=== PATIENT | female | born 1960 | race Caucasian/White ===

== ENCOUNTER 2017-04-08 20:52 | Observation (INO) | payer OTHER ==
[~2017-04-08] VITALS: Ht 160 cm; Wt 88.2 kg
[~2017-04-08 20:52] MED LIST: ALPR0.25 PO; FURO-92 PO; LEVO112T2 PO; LEVO125T5 PO; LOSA25TA5 PO; METO25TA35 PO; POTA10TA PO
[2017-04-08] MEDS ORDERED: LOSA1TAB16 PO (21:55)
[2017-04-08] MEDS ORDERED: SODIUM CHLORIDE FLUSH 10ML SYR IVF ONE (22:00)
[2017-04-08] MEDS ORDERED: ACETAMINOPHEN 325 MG TABLET PO ONE (22:00)
[2017-04-08] MEDS ORDERED: ASPIRIN 81 MG TABLET CHEW PO ONE (22:00)
[2017-04-08] MEDS ORDERED: NITROGLYCERIN SINGLE TAB 0.4 MG SL ONE ×2 (22:00→22:19)
[2017-04-08] MEDS ORDERED: LORazepam 2 MG/ML, 1ML IVPush ONE (22:00)
[2017-04-08] MEDS ORDERED: ACETAMINOPHEN 325 MG TABLET ONE (22:18)
[2017-04-08] MEDS ORDERED: LORazepam 2 MG/ML, 1ML ONE (22:19)
[2017-04-08] MEDS ORDERED: ASPIRIN 81 MG TABLET CHEW ONE (22:19)
[2017-04-08 22:27] LABS: HEMATOCRIT 40.5 % (34.6-47.8); HEMOGLOBIN 13.7 g/dL (11.7-16.4); WHITE BLOOD COUNT 8.9 x10^3/uL (3.4-10)
[2017-04-08 22:39] LABS: BLOOD UREA NITROGEN 27 mg/dL (7-18)
[2017-04-08 22:42] LABS: ASPARTATE AMINO TRANSFERASE 9 U/L (15-37)
[2017-04-08 22:53] LABS: IS PT STATUS REG ER OR PRE ER? YES
[2017-04-09] MEDS ORDERED: ENALAPRILAT 1.25 MG/ML, 2ML IVPush PRN
[2017-04-09] MEDS ORDERED: TEMAZEPAM 15 MG CAPSULE PO PRN
[2017-04-09 00:22] VITALS: BP 124/83
[2017-04-09] MEDS ORDERED: XANAX MC SCH (00:30)
[2017-04-09 00:45] VITALS: BP 124/83
[2017-04-09] MEDS: SODIUM CHLORIDE 0.9% 1,000 ML IV SCH ×2 (00:46→15:00)
[2017-04-09 05:24] LABS: HEMOGLOBIN 12.6 g/dL (11.7-16.4); WHITE BLOOD COUNT 7.4 x10^3/uL (3.4-10)
[2017-04-09 05:55] LABS: IS PT STATUS REG ER OR PRE ER? NO
[2017-04-09 05:56] LABS: BLOOD UREA NITROGEN 25 mg/dL (7-18)
[2017-04-09] MEDS ORDERED: LEVOTHYROXINE 112 MCG TABLET PO SCH (06:00)
[2017-04-09 07:21] VITALS: BP 109/76
[2017-04-09] MEDS: HEPARIN 5,000 UNITS/ML, 1ML SQ SCH ×3 (08:00→15:43)
[2017-04-09] MEDS ORDERED: REGADENOSON 0.4 MG/5 ML SYRINGE ONE (08:48)
[2017-04-09] MEDS ORDERED: HYDROCHLOROTHIAZIDE 12.5 MG CAPSULE PO SCH (09:00)
[2017-04-09] MEDS ORDERED: POTASSIUM CHLORIDE 10 MEQ TABLET.ER PO SCH (09:00)
[2017-04-09] MEDS ORDERED: LOSARTAN 50MG TABLET PO SCH (09:00)
[2017-04-09] MEDS ORDERED: METOPROLOL TARTRATE 100 MG TABLET PO SCH (09:00)
[2017-04-09 13:10] VITALS: BP 130/84
== END 2017-04-09 18:45 | disposition home or self-care (01) ==
LOC: ED 23:30 → EDIP 04-09 00:03 → INTOOBSV 04-09 00:03 → 5SO 04-09 00:12
PROVIDERS: ADMIT Internal Medicine; ATTEND Internal Medicine
DX: R07.89 Other chest pain (principal); I13.0 Hypertensive heart and chronic kidney disease with heart failure and stage 1 through stage 4 chronic kidney disease, or unspecified chronic kidney disease; N18.9 Chronic kidney disease, unspecified; I47.1 Supraventricular tachycardia; E03.9 Hypothyroidism, unspecified; E66.9 Obesity, unspecified; E06.3 Autoimmune thyroiditis; F41.9 Anxiety disorder, unspecified; I25.10 Atherosclerotic heart disease of native coronary artery without angina pectoris; I34.0 Nonrheumatic mitral (valve) insufficiency; I42.9 Cardiomyopathy, unspecified; R57.9 Shock, unspecified; Z80.8 Family history of malignant neoplasm of other organs or systems; Z82.49 Family history of ischemic heart disease and other diseases of the circulatory system; Z87.891 Personal history of nicotine dependence; Z95.810 Presence of automatic (implantable) cardiac defibrillator; Z90.710 Acquired absence of both cervix and uterus
CPT/HCPCS: 36415; 71010; 78452; 80048; 80053; 80061; 83735; 83880; 84100; 84439; 84443; 84481; 84484; 85025; 85610; 93005; 93017; 93306; 96360; 96361; 99285; A9502; C9898; G0378; J2785; J7030

== ENCOUNTER 2017-05-03 06:22 | Observation (INO) | payer OTHER ==
[~2017-05-03] VITALS: Ht 160 cm; Wt 86.4 kg
[~2017-05-03 06:22] MED LIST changes: +LOSA1TAB16 PO
[2017-05-03 06:43] VITALS: BP 119/86
[2017-05-03] MEDS ORDERED: POTA10TA6 PO (07:01)
[2017-05-03] MEDS ORDERED: LEVO112T4 PO (07:01)
[2017-05-03] MEDS ORDERED: ASPI-496 PO (07:02)
[2017-05-03] MEDS ORDERED: ATOR80TA PO (07:03)
[2017-05-03 07:18] LABS: HEMATOCRIT 39.8 % (34.6-47.8); HEMOGLOBIN 13.5 g/dL (11.7-16.4); WHITE BLOOD COUNT 9.8 x10^3/uL (3.4-10)
[2017-05-03] MEDS ORDERED: ISOS30TA8 PO (07:28)
[2017-05-03 07:29] LABS: BLOOD UREA NITROGEN 29 mg/dL (7-18)
[2017-05-03] MEDS ORDERED: VERAPAMIL 2.5 MG/ML, 2ML ONE ×2 (07:40→07:41)
[2017-05-03] MEDS ORDERED: FENTANYL PF 100 MCG/2ML ONE ×2 (07:40→09:20)
[2017-05-03] MEDS ORDERED: MIDAZOLAM 1 MG/ML, 5ML ONE ×2 (07:40→09:55)
[2017-05-03] MEDS ORDERED: NITROGLYCERIN 5 MG/ML, 10ML ONE (07:40)
[2017-05-03] MEDS ORDERED: HEPARIN 1,000 UNITS/ML, 10ML ONE ×2 (07:41→07:42)
[2017-05-03] MEDS ORDERED: PHENYLEPHRINE 10 MG/ML ONE (07:41)
[2017-05-03] MEDS ORDERED: LIDOCAINE 2%, 20ML ONE (07:41)
[2017-05-03] MEDS ORDERED: CLOPIDOGREL 300 MG TABLET ONE (08:21)
[2017-05-03] MEDS ORDERED: NITROGLYCERIN/D5W PMX 250 ML ONE (10:09)
[2017-05-03] MEDS ORDERED: SODIUM CHLORIDE 0.9% 1,000 ML IV SCH (11:30)
[2017-05-03] MEDS ORDERED: ONDANSETRON 2MG/ML, 2ML IVPush ONE (13:30)
[2017-05-03] MEDS ORDERED: ONDANSETRON 2MG/ML, 2ML IVPush PRN (13:30)
[2017-05-03 14:30] VITALS: BP 139/91
[2017-05-03] MEDS ORDERED: CARVEDILOL 6.25 MG TABLET PO SCH (18:00)
[2017-05-03] MEDS: SODIUM CHLORIDE 0.9% 1,000 ML IV SCH (18:30)
[2017-05-03 18:51] VITALS: BP 128/89
[2017-05-03] MEDS ORDERED: ATORVASTATIN 80 MG TABLET PO SCH (21:00)
[2017-05-03] MEDS: POTASSIUM CHLORIDE 10 MEQ TABLET.ER PO SCH (21:07)
[2017-05-03] MEDS: ACETYLCYSTEINE 600 MG CAPSULE PO SCH (21:07)
[2017-05-04 01:12] VITALS: BP 137/90
[2017-05-04] MEDS: SODIUM CHLORIDE 0.9% 1,000 ML IV SCH ×2 (02:34→06:16)
[2017-05-04 05:07] LABS: HEMATOCRIT 35.1 % (34.6-47.8); HEMOGLOBIN 12.1 g/dL (11.7-16.4)
[2017-05-04 05:25] LABS: BLOOD UREA NITROGEN 18 mg/dL (7-18)
[2017-05-04] MEDS ORDERED: ASPIRIN 81 MG TABLET EC PO SCH (06:00)
[2017-05-04] MEDS ORDERED: LEVOTHYROXINE 112 MCG TABLET PO SCH (06:00)
[2017-05-04 08:40] VITALS: BP_SYST 141; BP_SYST 151; BP_DIAS 103; BP_DIAS 95
[2017-05-04] MEDS ORDERED: ISOSORBIDE MONONITRATE ER 30 MG TABLET PO SCH (09:00)
[2017-05-04] MEDS ORDERED: METOPROLOL TARTRATE 100 MG TABLET PO SCH (09:00)
[2017-05-04] MEDS ORDERED: CLOPIDOGREL 75 MG TABLET PO SCH (09:00)
[2017-05-04] MEDS: ACETYLCYSTEINE 600 MG CAPSULE PO SCH (09:10)
[2017-05-04] MEDS: POTASSIUM CHLORIDE 10 MEQ TABLET.ER PO SCH (09:16)
[2017-05-04] MEDS ORDERED: ACET600C6 PO (10:50)
[2017-05-04] MEDS ORDERED: CLOP75TA PO (10:50)
[2017-05-04] MEDS ORDERED: SODIUM CHLORIDE 0.9% 1,000 ML IV SCH (11:30)
== END 2017-05-04 13:27 | disposition home or self-care (01) ==
LOC: CACL 06:22 → 5SO 10:39 → CACL 11:18 → DCLOUNGE 05-04 13:13
PROVIDERS: ADMIT Internal Medicine Interventional Cardiology; ATTEND Internal Medicine Interventional Cardiology
DX: I47.1 Supraventricular tachycardia (principal); I42.9 Cardiomyopathy, unspecified; I25.118 Atherosclerotic heart disease of native coronary artery with other forms of angina pectoris; I12.9 Hypertensive chronic kidney disease with stage 1 through stage 4 chronic kidney disease, or unspecified chronic kidney disease; N18.9 Chronic kidney disease, unspecified; N14.1 Nephropathy induced by other drugs, medicaments and biological substances; T50.8X5A Adverse effect of diagnostic agents, initial encounter; E66.01 Morbid (severe) obesity due to excess calories; E03.9 Hypothyroidism, unspecified; E06.3 Autoimmune thyroiditis; E78.5 Hyperlipidemia, unspecified; Y92.89 Other specified places as the place of occurrence of the external cause; Z80.1 Family history of malignant neoplasm of trachea, bronchus and lung; Z82.49 Family history of ischemic heart disease and other diseases of the circulatory system; Z90.710 Acquired absence of both cervix and uterus; Z95.5 Presence of coronary angioplasty implant and graft; Z95.810 Presence of automatic (implantable) cardiac defibrillator
CPT/HCPCS: 36415; 80048; 82040; 82570; 84300; 85014; 85018; 85025; 85347; 85610; 93005; 93458; 96374; 99156; 99157; C1725; C1769; C1874; C1887; C1894; C9600; G0378; J1644; J2250; J2370; J2405; J3010; J3490; J7030; Q9967

== ENCOUNTER 2018-06-20 16:00 | Emergency (ER) | payer OTHER ==
[~2018-06-20] VITALS: Ht 160 cm; Wt 87.3 kg
[~2018-06-20 16:00] MED LIST changes: +ACET600C6 PO; +ASPI-496 PO; +ATOR80TA PO; +CLOP75TA PO; +ISOS30TA8 PO; +LEVO112T4 PO; -LOSA1TAB16 PO; +LOSA1TAB19 PO; -LOSA25TA5 PO; +LOSA25TA6 PO; +POTA10TA6 PO
[2018-06-20] MEDS ORDERED: ASPIRIN 81 MG TABLET CHEW PO ONE (16:30)
[2018-06-20] MEDS ORDERED: ASPIRIN 81 MG TABLET CHEW ONE (16:42)
[2018-06-20 17:16] LABS: BASOPHILS # (AUTO) 0.03 x10^3/uL (0-0.1); BASOPHILS % (AUTO) 0 % (0-1); EOSINOPHILS # (AUTO) 0.21 x10^3/uL (0-0.4); EOSINOPHILS % (AUTO) 3 % (1-7); LYMPHOCYTES # (AUTO) 1.25 x10^3/uL (1-3.4); LYMPHOCYTES % (AUTO) 16 % (22-44); MD NO; MEAN CORPUSCULAR HEMOGLOBIN 31.2 pg (27.0-34.8); MEAN CORPUSCULAR HGB CONC 34.6 g/dL (32.4-35.8); MEAN CORPUSCULAR VOLUME 90.1 fL (80-100); MONOCYTES % (AUTO) 7 % (2-9); NEUTROPHILS # (AUTO) 5.96 x10^3/uL (1.8-6.8); NEUTROPHILS % (AUTO) 74 % (42-75); PLATELET COUNT 245 x10^3/uL (130-400); RED CELL DISTRIBUTION WIDTH 12.4 % (9.6-15.2)
[2018-06-20 17:24] LABS: ALANINE AMINOTRANSFERASE 17 U/L (12-78); ALBUMIN 3.6 g/dL (3.4-5.0); ANION GAP 11 mmol/L (5-15); CALCIUM 8.9 mg/dL (8.5-10.1); CHLORIDE 105 mmol/L (98-107); CREATININE 1.38 mg/dL (0.55-1.02)
[2018-06-20 17:28] LABS: ALKALINE PHOSPHATASE 97 U/L (45-117); BILIRUBIN,TOTAL 0.4 mg/dL (0.2-1.0); TOTAL PROTEIN 7.9 g/dL (6.4-8.2); TROPONIN I < 0.015 ng/mL (0.000-0.045)
[2018-06-20 20:28] VITALS: BP 142/91
== END 2018-06-20 20:32 | disposition home or self-care (01) ==
LOC: ED 19:56
DX: R07.9 Chest pain, unspecified (principal); I10 Essential (primary) hypertension; E07.9 Disorder of thyroid, unspecified; Z87.891 Personal history of nicotine dependence; Z98.890 Other specified postprocedural states; Z95.0 Presence of cardiac pacemaker; Z90.710 Acquired absence of both cervix and uterus
CPT/HCPCS: 36415; 71046; 74176; 76700; 80053; 83690; 83880; 84484; 85025; 93005; 99285

== ENCOUNTER 2018-09-11 07:16 | Emergency (ER) | payer OTHER ==
[~2018-09-11] VITALS: Ht 160 cm; Wt 88.0 kg
[~2018-09-11 07:16] MED LIST changes: +LOSA25TA25 PO; -LOSA25TA6 PO
--- NOTE | 2018-09-11 08:04 | NUR ---
LATE NOTE ENTRY FOR 0800: FIRST CONTACT WITH PT. [facility]. Pt resting on gurney. Lab at bedside. X-ray at bedside. Pt's spouse at bedside. Pt connected to all monitors. Pt states, "I have a defibrilator and a pacer. I started feeling palpatations around 6 this morning. I took nitor and my blood pressure medication." All safety measures in place. Pt has call light within reach. Pt denines: N/V/D, SOB, TRAUMA.
[2018-09-11 08:13] LABS: BASOPHILS # (AUTO) 0.02 x10^3/uL (0-0.1); BASOPHILS % (AUTO) 0 % (0-1); EOSINOPHILS % (AUTO) 2 % (1-7); LYMPHOCYTES % (AUTO) 12 % (22-44); MD NO; MEAN CORPUSCULAR HEMOGLOBIN 30.8 pg (27.0-34.8); MEAN CORPUSCULAR HGB CONC 34.1 g/dL (32.4-35.8); MEAN CORPUSCULAR VOLUME 90.3 fL (80-100); MEAN PLATELET VOLUME 6.9 fL (7.4-10.4); MONOCYTES % (AUTO) 7 % (2-9); NEUTROPHILS # (AUTO) 6.73 x10^3/uL (1.8-6.8); NEUTROPHILS % (AUTO) 79 % (42-75); PLATELET COUNT 284 x10^3/uL (130-400); RED BLOOD COUNT 4.65 x10^6/uL (3.82-5.3); RED CELL DISTRIBUTION WIDTH 12.7 % (9.6-15.2)
[2018-09-11 08:23] LABS: ALBUMIN 3.6 g/dL (3.4-5.0); ANION GAP 5 mmol/L (5-15); CALCIUM 9.4 mg/dL (8.5-10.1); CHLORIDE 107 mmol/L (98-107); CREATININE 1.36 mg/dL (0.55-1.02)
[2018-09-11 08:27] LABS: TROPONIN I < 0.015 ng/mL (0.000-0.045)
--- NOTE | 2018-09-11 10:54 | NUR ---
Pt ambulates to restroom with steady gait and balance.
[2018-09-11 11:01] VITALS: BP 120/75
--- NOTE | 2018-09-11 11:02 | NUR ---
Patient given discharge instructions and they have confirmed that they understand the instructions. Patient ambulatory with steady gait. PT AND SPOUSE LEFT WITH ALL PERSONAL BELONGINGS.
== END 2018-09-11 11:03 | disposition home or self-care (01) ==
LOC: ED 08:59
DX: R00.2 Palpitations (principal); I10 Essential (primary) hypertension; Z90.710 Acquired absence of both cervix and uterus; Z87.891 Personal history of nicotine dependence; Z86.39 Personal history of other endocrine, nutritional and metabolic disease; Z95.0 Presence of cardiac pacemaker
CPT/HCPCS: 36415; 71045; 80048; 82040; 84484; 85025; 93005; 99284

== ENCOUNTER 2020-02-22 21:01 | Emergency (ER) | payer OTHER ==
[~2020-02-22] VITALS: Ht 160 cm; Wt 89.0 kg
[2020-02-22 21:36] LABS: BASOPHILS % (AUTO) 0 % (0-1); EOSINOPHILS # (AUTO) 0.26 x10^3/uL (0-0.4); EOSINOPHILS % (AUTO) 2 % (1-7); LYMPHOCYTES # (AUTO) 1.48 x10^3/uL (1-3.4); LYMPHOCYTES % (AUTO) 14 % (22-44); MD NO; MEAN CORPUSCULAR HGB CONC 33.8 g/dL (32.4-35.8); MEAN CORPUSCULAR VOLUME 91.8 fL (80-100); MEAN PLATELET VOLUME 6.9 fL (7.4-10.4); MONOCYTES # (AUTO) 0.84 x10^3/uL (0.2-0.8); MONOCYTES % (AUTO) 8 % (2-9); NEUTROPHILS # (AUTO) 8.23 x10^3/uL (1.8-6.8); NEUTROPHILS % (AUTO) 76 % (42-75); PLATELET COUNT 285 x10^3/uL (130-400); RED BLOOD COUNT 4.79 x10^6/uL (3.82-5.3); RED CELL DISTRIBUTION WIDTH 12.8 % (9.6-15.2)
[2020-02-22 21:46] LABS: ANION GAP 8 mmol/L (5-15); CALCIUM 9.3 mg/dL (8.5-10.1); CHLORIDE 104 mmol/L (98-107); CREATININE 1.59 mg/dL (0.55-1.02)
[2020-02-22 21:47] LABS: ALANINE AMINOTRANSFERASE 28 U/L (12-78); ALBUMIN 3.6 g/dL (3.4-5.0)
[2020-02-22 21:51] LABS: ALKALINE PHOSPHATASE 105 U/L (45-117); BILIRUBIN,TOTAL 0.4 mg/dL (0.2-1.0); TOTAL PROTEIN 8.3 g/dL (6.4-8.2); TROPONIN I < 0.015 ng/mL (0.000-0.045)
--- NOTE | 2020-02-22 22:20 | NUR ---
PT HERE FOR STERNAL PAIN THAT IS ALSO UNDER HER LEFT BREAST. PT SAYS PAIN STARTED AND ABD PAIN AND THEN MOVED. PAIN IS SHARP. VSS. PT PLACED ON MONITORS. PT TO US.
[2020-02-22] MEDS ORDERED: SODIUM CHLORIDE 0.9% 1,000ML IVBOLUS ONE (22:30)
[2020-02-22] MEDS ORDERED: SODIUM CHLORIDE FLUSH 10ML SYR IVF ONE (22:30)
[2020-02-22] MEDS ORDERED: MORPHINE SULFATE 4 MG/ML, 1ML IVPush PRN (22:30)
[2020-02-22 23:00] VITALS: BP 128/89
--- NOTE | 2020-02-22 23:01 | NUR ---
PIV PLACED. PT REFUSING PAIN MEDS AT THIS TIME. FLUIDS RUNNING. PT HAS NO NEEDS AT THIS TIME. VSS. CALL LIGHT IN REACH
== END 2020-02-23 00:52 | disposition home or self-care (01) ==
LOC: ED 22:18
DX: R07.2 Precordial pain (principal); K85.00 Idiopathic acute pancreatitis without necrosis or infection; R94.31 Abnormal electrocardiogram [ECG] [EKG]; I11.9 Hypertensive heart disease without heart failure; Z90.710 Acquired absence of both cervix and uterus; Z95.0 Presence of cardiac pacemaker; Z98.61 Coronary angioplasty status
CPT/HCPCS: 36415; 71046; 76700; 80053; 83690; 84484; 85025; 93005; 99285; J7030